=== PATIENT | female | born 1975 ===

== ENCOUNTER 2018-10-29 09:20 | Emergency (ER) | payer BC, MEDICAID ==
[2018-10-29 09:37] VITALS: BP 119/79; PULSE 103; RESP 20; TEMP 98.3; O2SAT 100
--- NOTE | 2018-10-29 09:45 | C.PDOC ---
History Of Present Illness 42 year old female presents to the ED for evaluation of a dry, non-productive cough since yesterday. Patient denies fever, wheezing. Reports pleuritic pain. Patient denies history of smoking or asthma. INSPECTOR TECHNICIAN DRY COUGH SINCE YEST. NO FEVER, WHEEZE. +PLEURITIC PAIN. DENIES SMOKING, ASTHMA EXAM NARD HEENT NEG LUNGS CTA B/L NO W/R/R REMAINDER NEG Time Seen by Provider: 10/29/18 09:42 Chief Complaint (Nursing): Flu-like Symptoms History Per: Patient History/Exam Limitations: no limitations Onset/Duration Of Symptoms: Hrs Current Symptoms Are (Timing): Still Present Associated Symptoms: Cough. denies: Fever, Sputum Past Medical History Reviewed: Historical Data, Nursing Documentation, Vital Signs Vital Signs: Last Vital Signs Temp 98.3 F 10/29/18 09:36 Pulse 103 H 10/29/18 09:36 Resp 20 10/29/18 09:36 BP 119/79 10/29/18 09:36 Pulse Ox 100 10/29/18 09:36 - Medical History PMH: Anemia, Depression Surgical History: (x 2) - [facility] Procedures INJECT/INFUSE NEC (09/22/06) NEBULIZER THERAPY (11/12/13) Family History: States: Unknown Family Hx - Social History Hx Tobacco Use: No Hx Alcohol Use: No Hx Substance Use: No - Immunization History Hx Tetanus Toxoid Vaccination: No Hx Influenza Vaccination: No Hx Pneumococcal Vaccination: No Review Of Systems Constitutional: Negative for: Fever Respiratory: Positive for: Cough. Negative for: Sputum Physical Exam - Physical Exam Appears: Non-toxic, Other (no acute respiratory distress ) Skin: Normal Color, Warm, Dry Head: Atraumatic, Normacephalic Eye(s): bilateral: Normal Inspection Ear(s): Bilateral: Normal Nose: Normal, No Discharge Oral Mucosa: Moist Throat: Normal, No Erythema, No Exudate Neck: Supple Chest: Symmetrical, No Deformity, No Tenderness Cardiovascular: Rhythm Regular, No Murmur Respiratory: Normal Breath Sounds, No Rales, No Rhonchi, No Wheezing, Other (clear to auscultation ) Extremity: Normal ROM, Capillary Refill (less than 2 seconds ) Neurological/Psych: Oriented x3, Normal Speech, Normal Cognition ED Course And Treatment O2 Sat by Pulse Oximetry: 100 (on RA) Pulse Ox Interpretation: Normal Disposition Counseled Patient/Family Regarding: Diagnosis, Need For Followup, Rx Given - Disposition Referrals: YOUR,PMD [Other] Disposition: HOME/ ROUTINE Disposition Time: 09:43 Condition: GOOD Prescriptions: Albuterol HFA [Ventolin HFA 90 mcg/actuation (8 g)] 1 puff IH Q4 #1 inhaler Benzonatate [Tessalon Perles] 200 mg PO TID PRN #15 sgl PRN Reason: Cough Ibuprofen [Motrin] 600 mg PO Q6 #30 tab Instructions: Acute Bronchitis, Adult (DC) Forms: [employer]ipper (Italian), Work Excuse - Clinical Impression Clinical Impression: Bronchitis - Scribe Statement The provider has reviewed the documentation as recorded by the Scribe (Marianne Hernandez) Provider Attestation: All medical record entries made by the Scribe were at my direction and personally dictated by me. I have reviewed the chart and agree that the record accurately reflects my personal performance of the history, physical exam, medical decision making, and the department course for this patient. I have also personally directed, reviewed, and agree with the discharge instructions and disposition.
== END 2018-10-29 09:50 | disposition home or self-care (01) ==
LOC: C.ER 09:20
DX: J40 Bronchitis, not specified as acute or chronic (principal)